=== PATIENT | female | born 1970 | race Caucasian/White ===

== ENCOUNTER 2016-10-30 12:35 | Emergency (ER) | payer MEDICAID ==
--- OUTSIDE RECORDS SUMMARY | 2016-10-30 12:54 | XMS REPORT | Continuity of Care Document ---
:1970 Author Organization [facility] Address [place] [address] Care Team Providers Name Role Phone Anna Marie Rueda Primary Care Provider [phone] Source Comments This disclosure is being made pursuant to the [employer] program and maynot contain all information available regarding this patient.[facility] Active Allergies and Adverse Reactions No Known Allergies Current Medications Be aware that medications may not be up to date as of this document. Alwaysverify current medications with the patient. Prescription Sig. Disp. Refills Start Date End Date Status citalopram (CELEXA) 40 MG Take by mouth. 09/15/2011 Active tablet cyclobenzaprine (FLEXERIL) Take by mouth. 07/31/2016 Active 5 MG tablet hydrochlorothiazide Take by mouth. 01/13/2012 Active (MICROZIDE) 12.5 MG capsule levonorgestrel (MIRENA, 52 by Intrauterine 02/15/2014 Active MG,) 20 MCG/24HR IUD route. verapamil (CALAN-SR) 240 Take by mouth. 02/01/2015 Active MG CR tablet meloxicam (MOBIC) 15 MG Take 15 mg by Active tablet mouth daily. Hospital, Clinic, or Other Ordered Dose Route Frequency Start Date End Date Status Facility Administered Medication methylPREDNISolone acetate 80mg IX Once 10/03/2016 10/03/2016 Ended (DEPO-MEDROL) injection Active Problems No known active problems Most Recent Encounters Date Type Specialty Providers Description 10/03/2016 Clinical Support Radiology Isra Sanchez, Chronic pain of right PA knee Billie Soriano, RT 10/03/2016 Office Visit Orthopedic Surgery Isra Sanchez, Chronic pain of right PA knee (Primary Dx); Primary osteoarthritis of one knee, right Social History Tobacco Use Types Packs/Day Years Used Date Never Smoker Alcohol Use Drinks/Week oz/Week Comments No 0 Standard drinks or equivalent 0.0 Alcoholic Drinks/day: ALCOHOL USE: NON-DRINKER Last Filed Vital Signs Vital Sign Reading Time Taken Blood Pressure 160/90 10/03/2016 8:32 AM CDT Pulse - - Temperature - - Respiratory Rate - - Height 1.676 m (5' 6") 10/03/2016 8:31 AM CDT Weight 158.305 kg (349 lb) 10/03/2016 8:31 AM CDT Body Mass Index 56.36 10/03/2016 8:31 AM CDT Oxygen Saturation - - Plan of Care Health Maintenance Due Date Last Done Comments Tetanus/Pertussis (1 - Tdap) 1990 Pap Smear 01/16/1992 Influenza Immunization (Season Ended) 2017 Results from Last 3 Months XR KNEE MIN 4 VIEWS (10/03/2016 8:18 AM) Narrative XR KNEE MIN 4 VIEWS [id number] RT Clinical History: RT KNEE PAIN X FEW YEARS.HX OF MENISCUS TEAR 3 YEARS AGO [facility] Comparison: 04/12/2013. Findings: 4 radiographs of the right knee were obtained with frontal, lateral, axial, and sunrise projections.There is no definite evidence of acute fracture or dislocation involving the right knee.There is mild osteopenia.There are tricompartmental degenerative changes of the right knee with joint space narrowing and osteophytosis.There is near [id number] articulation of the medial compartment.There is a trace suprapatellar joint effusion. Impression: 1.Mild osteopenia with tricompartmental degenerative changes of the right knee without definite evidence of acute fracture or dislocation. 2.Trace suprapatellar joint effusion. THIS IS AN ELECTRONICALLY SIGNED REPORT BY READING PHYSICIAN: Chelsea Fontaine D.O.2016-10-03 14:45:52 Procedure Note [place], External Ris In - ThuOct 03, 2016 2:46 PM CDT XR KNEE MIN 4 VIEWS [id number] RT Clinical History: RT KNEE PAIN X FEW YEARS. HX OF MENISCUS TEAR 3 YEARS AGO [facility] Comparison: 04/12/2013. Findings: 4 radiographs of the right knee were obtained with frontal, lateral, axial, and sunrise projections. There is no definite evidence of acute fracture or dislocation involving the right knee. There is mild osteopenia. There are tricompartmental degenerative changes of the right knee with joint space narrowing and osteophytosis. There is near [id number] articulation of the medial compartment. There is a trace suprapatellar joint effusion. Impression: 1. Mild osteopenia with tricompartmental degenerative changes of the right knee without definite evidence of acute fracture or dislocation. 2. Trace suprapatellar joint effusion. THIS IS AN ELECTRONICALLY SIGNED REPORT BY READING PHYSICIAN: Chelsea Fontaine D.O. 2016-10-03 14:45:52
[2016-10-30 12:59] LABS: Urine Bilirubin Negative (NEGATIVE); Urine Ketone Negative (NEGATIVE); Urine Nitrite Negative (NEGATIVE); Urine Protein Negative (NEGATIVE); Urine Specific Gravity >=1.030 SP.GR. (1.005-1.010); Urine Urobilinogen Normal (NORMAL)
[2016-10-30 13:08] LABS: Urine Appearance Clear; Urine Blood 10 /ul (NEGATIVE); Urine Color Yellow
[2016-10-30 13:09] LABS: Urine Bacteria None Seen; Urine RBC 0-5 /hpf (0-5); Urine WBC TRACE /hpf (0-5)
[2016-10-30 13:14] LABS: Hematocrit 43.4 % (37.0-47.0); Hemoglobin 14.7 gm/dL (12.5-16.0); Mean Cell Volume 93.7 fl (78-100); Mean Corpuscular Hemoglobin 31.7 pg (27-31); Mean Corpuscular Hgb Conc 33.9 g/dl (32-36); Mean Platelet Volume 9.8 fl (6.0-9.5); Neutrophil % 61.2 % (42-75.0); Platelet Count 314 K/mm3 (150-450); Red Blood Count 4.63 M/mm3 (4.2-5.4); Red Cell Distribution Width 12.4 % (11.5-14.0); White Blood Count 8.2 K/mm3 (4.0-10.5)
[2016-10-30 13:28] LABS: Albumin * 3.9 gm/dl (3.4-5.0); BUN/Creatinine Ratio 19.7 (9.0-21.6); Bilirubin, Total 0.4 mg/dL (0.0-1.1); Calcium * 9.2 mg/dL (7.9-10.9); Carbon Dioxide 31.9 mmol/L (24-32.6); Potassium 3.9 mmol/L (3.4-4.6); Total Protein 8.1 gm/dL (6.2-8.2)
[2016-10-30] MEDS ORDERED: DIATRIZOATE MEGLU/DIATRIZO SOD 30 ML BTL PO ONE ×2 (14:16→14:54)
[2016-10-30] MEDS ORDERED: DIATRIZOATE MEGLU/DIATRIZO SOD 30 ML BTL ONE (14:51)
[2016-10-30 16:56] VITALS: BP 147/83
--- NOTE | 2016-10-30 17:25 | ERNOTE ---
Abdominal HPI - Narrative Date of Service: 10/30/16 - General Chief Complaint: Abdominal Pain Time Seen by Provider: 10/30/16 12:46 Source: patient Exam Limitations: no limitations - Immun/Allergies/Home Medications Immunizatons: IMMUNIZATION HX History of Influenza Vaccine No Hx Pneumococcal Vaccination No Allergies/Adverse Reactions: Allergies No Known Allergies Allergy (Unverified 10/30/16 12:43) Home Medications: HOME MEDICATIONS Citalopram Hydrobromide [Celexa] 40 mg PO DAILY 10/30/16 [Last Taken Unknown] Dicyclomine HCl [Bentyl] 10 mg PO TID PRN #15 capsule 10/30/16 [Last Taken Unknown] Hydrochlorothiazide 12.5 mg PO DAILY 10/30/16 [Last Taken Unknown] Verapamil HCl [Verapamil ER] 240 mg PO DAILY 10/30/16 [Last Taken Unknown] - History of Present Illness Narrative: Patient presents with right sided abdominal pain. Lateral right mid abdomen. She relates she had a cramp last night in her right abdomen but noticed increased pain throughout the day. No upper or low abdominal pain. No vomiting. No diarrhea. Has never had anything like this before. Has not seen anyone else for this. Localizes pain lateral right mid abdomen. Nothing makes it better or worse. Timing: constant Quality: moderate Activities at Onset: none Modifying Factors - (Improves): Present: other - nothing Modifying Factors - (Worsens): Present: other - notiing Associated Symptoms: Absent: chest pain, fatigue, fever/chills, shortness of breath Prior Abdominal Problems: Present: none Prior Treatment: Absent: recently seen Review of Systems - Review of Systems Constitutional: Absent: fever ENT: Present: no symptoms reported Respiratory: Present: other - nothing to suggest PE Sx.. Absent: shortness of breath Cardiology: Absent: chest pain Gastrointestinal/Abdominal: Present: See HPI Genitourinary: Absent: dysuria Musculoskeletal: Present: no symptoms reported Skin: Absent: rash - Patient's Past Medical History Patient History - Medical: No pertinent hx Patient History - Cardiac/Respiratory: Hypertension, Hyperlipidemia Patient History - Cancer: No Hx of Cancer Patient History - Surgical Procedures: Cholecystectomy, Patient History - Other: None - Social History Living Situations: home Psych History: No pertinent hx Alcohol Use: none Drug Use: none - Immunizations Hx Pneumococcal Vaccination: No History of Influenza Vaccine: No Physical Exam - Physical Exam General Appearance: Present: alert, no apparent distress Eye Exam: Normal inspection: bilateral Ears, Nose, Throat: Present: normal ENT inspection Neck: Present: normal inspection Respiratory: Present: no respiratory distress, normal breath sounds, no accessory muscle use, lungs clear Cardiovascular/Chest: Present: regular rate, rhythm Gastrointestinal/Abdominal: Present: normal bowel sounds, soft, no organomegaly , other - very mild lateral right abdominal tenderness, mid abdomen. No guarding or rebound. No peritoneal signs. Ni upper abdominal pain or low abdomainal pain. No pelvic pain. Nothign clinically would suggest surgical abdomen, pelvic etiology or FitzHughCurtis syndrome Back Exam: Present: normal range of motion Extremity Exam: Present: normal range of motion Neurological Exam: Present: alert, normal mood/affect, no motor/sensory deficits Skin Exam: Absent: skin rash ED Progress - Results and Orders Patient's Lab Results:: I have reviewed the patient's lab results. - Vital Signs Patient's Vital Signs:: I have reviewed the patient's vital signs. Vital Signs: Vital Signs 10/30/16 10/30/16 10/30/16 12:36 13:04 13:36 Temperature 36.4 C L 36.4 C L Pulse Rate 74 74 74 Respiratory 12 12 16 Rate Blood Pressure 142/88 142/88 160/80 O2 Sat by Pulse 96 96 94 Oximetry 10/30/16 10/30/16 10/30/16 14:13 14:52 15:37 Temperature Pulse Rate 72 78 74 Respiratory 16 16 16 Rate Blood Pressure 150/85 142/84 151/87 O2 Sat by Pulse 93 95 97 Oximetry 10/30/16 10/30/16 16:24 16:54 Temperature Pulse Rate 77 71 Respiratory 16 16 Rate Blood Pressure 147/79 147/83 O2 Sat by Pulse 95 95 Oximetry - CT/Ultrasound CT/Ultrasound Narrative: CT report reviewed - Progress/Reassessment Chief Complaint: Abdominal Pain Progress Note-Subjective: 10/30/16 17:24 Nothing clinically or by labs would suggest pancreatitis. Nothing to suggest pelvic etiology of her pain. Abd non-surgical. No appendicitis. She feel slike going home. No clear etiology. Will give bentyl and close f/u. I discussed warning signs and reasons to return as well as the need for close f/u. Departure - Departure Clinical Impression: Abdominal pain Disposition: Home self-care Condition: Stable Instructions: Abdominal Pain, Adult, [id number] Additional Instructions: Rest. Fluids. Follow-up with your doctor tomorrow for a re-check. You will need an ultrasound that your doctor can order. Return for fever, vomiting, increased pain or if your condition worsens or changes in any way. Referrals: Anna Marie Rueda CNP [Primary Care Provider] - Prescriptions: Dicyclomine HCl [Bentyl] 10 mg PO TID PRN #15 capsule PRN Reason: Pain
== END 2016-10-30 17:18 | disposition home or self-care (01) ==
LOC: ER 12:35
DX: R10.9 Unspecified abdominal pain (principal)